=== PATIENT | male | born 1935 | race Caucasian/White ===

== ENCOUNTER 2022-07-09 13:04 | Inpatient (IN) | payer OTHER ==
[~2022-07-09] VITALS: Ht 177.8 cm; Wt 73.5 kg
[2022-07-09] MEDS ORDERED: ASPIR 8181 M1 PO (14:04)
[2022-07-09] MEDS ORDERED: OMEP20ER PO (14:05)
[2022-07-09] MEDS ORDERED: GALA8 PO (14:05)
[2022-07-09 15:11] LABS: BASOPHILS ABSOLUTE AUTO 0.04 K/mm3 (0.00-0.23); BASOPHILS PERCENT AUTO 0 % (0-2); EOSINOPHILS ABSOLUTE AUTO 0.08 K/mm3 (0.00-0.68); EOSINOPHILS PERCENT AUTO 1 % (0-6); Hematocrit 41.5 % (37.0-53.0); Hemoglobin 14.5 g/dL (13.5-17.5); IMMATURE GRAN ABSOLUTE AUTO 0.04 K/mm3 (0.00-0.10); IMMATURE GRAN PERCENT AUTO 0 % (0-1); LYMPHOCYTES ABSOLUTE AUTO 0.93 K/mm3 (0.84-5.20); LYMPHOCYTES PERCENT AUTO 8 % (21-46); MONOCYTES ABSOLUTE AUTO 0.54 K/mm3 (0.16-1.47); MONOCYTES PERCENT AUTO 5 % (4-13); Mean Corpuscular HGB 30.7 pg (26.0-34.0); Mean Corpuscular HGB Conc 34.9 g/dL (31.5-36.5); Mean Corpuscular Volume 88 fL (80-100); Mean Platelet Volume 10.6 fL (9.1-12.4); NEUTROPHILS ABSOLUTE AUTO 9.88 K/mm3 (1.96-9.15); NEUTROPHILS PERCENT AUTO 86 % (41-73); Platelet Count 163 K/mm3 (150-400); RDW Coefficient Variation 12.8 % (11.7-14.2); RDW Standard Deviation 41.3 fL (35.1-46.3); Red Blood Cell Count 4.72 M/mm3 (4.30-5.90); White Blood Cell Count 11.51 K/mm3 (4.00-11.30)
[2022-07-09 15:47] LABS: Albumin, Blood 3.4 g/dL (3.4-5.0); Albumin/Globulin Ratio 1.1 (0.8-1.8); Bilirubin, Total 0.6 mg/dL (0.1-1.0); Bun/Creatinine Ratio 19.9 (12.0-20.0); Calcium, Blood 8.6 mg/dL (8.5-10.1); Creatinine, Blood 0.86 mg/dL (0.60-1.20); Potassium, Blood 3.6 mmol/L (3.5-5.5); Total Protein, Blood 6.4 g/dL (6.4-8.2)
--- NOTE | 2022-07-10 04:06 | NUR ---
SHIFT SUMMARY A/O TO SELF ONLY. BEDREST THROUGHOUT SHIFT AWAITING POSSIBLE SURGERY FOR L HIP FX. NPO SINCE MIDNIGHT. PAIN MANAGED PER EMAR. SLEPT ON AND OFF THROUGHOUT THE NIGHT. VOIDED AND REPORTS NO NAUSEA OR VOMITING. PLEASANT AND COOPERATIVE W/ CARE. WILL CONTINUE TO MONITOR AND REPORT TO ONCOMING RN.
[2022-07-10 06:40] LABS: SARS-Cov-2 (COVID-19) PCR, MMC NEGATIVE (NEGATIVE)
[2022-07-10 10:36] LABS: Source, Urine Foley catheter
[2022-07-10 10:53] LABS: Bilirubin, Urine Neg (Neg); Blood, Urine Neg (Neg); Glucose Qualitative, Urine 2+ (Neg); Ketones, Urine Neg (Neg); Leukocyte Esterase, Urine Neg (Neg); Nitrite, Urine Neg (Neg); Protein, Urine 2+ (Neg); Specific Gravity, Urine 1.025 (1.003-1.022); Urobilinogen, Urine 1+ (Normal)
--- NOTE | 2022-07-10 11:11 | NUR ---
Pt. is awake in bed and welcomes my visit. Pts. son is present. Pt. is unsettled about his recent fall and inquires of this chaplains background. With a calming presence and theraputic listening am able to answer the pts. inquiries. Establish rapport. Pt. displays evidence of awareness and trust in God. Prayed with Pt. Pt. and Pts. son verbalize gratitude for the spiritual care visit.
[2022-07-10 11:33] LABS: Appearance, Urine Clear (Clear); Color, Urine Yellow (P-Yellow)
[2022-07-10 11:34] LABS: Bacteria Not Seen /hpf; Red Blood Cells, Urine Not Seen /hpf (0-2); Squamous Epithelial Cells Not Seen /hpf (Few); White Blood Cells, Urine Not Seen /hpf (0-5)
--- NOTE | 2022-07-10 12:34 | NUR ---
PT TO UNIT VIA BED. SON AT BEDSIDE. SON IS POWER OF INDUSTRI[employer] PROFESSOR. PT RATES NO PAIN UNLESS MOVING, NO NAUSEA REPORTED.
--- NOTE | 2022-07-10 12:34 | NUR ---
PATIENT LEFT FOR THE OR WITH THE OR NURSES IN HIS BED.
--- NOTE | 2022-07-10 14:09 | NUR ---
PATIENT CAME BACK FROM PRE-OP AREA TO HIS ROOM DUE TO AN EMERGENT SURGERY. PATIENT IS A&OX4. CONTINUING NPO FOR DIET SINCE HE STILL MIGHT GO TO SURGERY LATER TODAY. IV FLUIDS RUNNING. PAIN IS MANAGED WITH IV PAIN MEDICATIONS. CALL LIGHT WITHIN REACH.
--- NOTE | 2022-07-10 18:05 | NUR ---
patient left for the or.
--- NOTE | 2022-07-10 22:23 | NUR ---
PT TO THE FLOOR FROM RECOVERY @ 2129. AYLA, DA SILVA PATENT DRAINING TO GRAVITY, STAT LOCK IN PLACE. ON ROOM AIR SATS @ 99%.PT SLEEPING BUT AROUSES EASILY. AQUACEL TO L HIP C/D/I. SCD'S IN PLACE. BED ALARM ON FOR SAFETY. CALL LIGHT IN REACH WILL CONTINUE TO MONITOR.
--- NOTE | 2022-07-11 03:48 | NUR ---
SHIFT SUMMARY POD 0 L HIP GAMMA NAIL. PATIENT ARRIVED TO THE FLOOR FROM RECOVERY @ 2130, SLEEPY BUT AROUSES TO STIMULI. DA SILVA PATENT DRAINING DARK TEA COLORED URINE. IV FLUIDS INFUSING. VSS, SATS IN THE UPPER 90'S ON RA. PATIENT HAS BEEN RESTING COMFORTABLY THROUGHOUT THIS SHIFT. REPOSITIONED WITH ASSISTANCE. CALL LIGHT IN REACH, BED ALARM ON. WILL REPORT TO DAY RN.
[2022-07-11 04:41] LABS: BASOPHILS ABSOLUTE AUTO 0.01 K/mm3 (0.00-0.23); BASOPHILS PERCENT AUTO 0 % (0-2); EOSINOPHILS PERCENT AUTO 0 % (0-6); Hematocrit 33.7 % (37.0-53.0); Hemoglobin 11.9 g/dL (13.5-17.5); IMMATURE GRAN ABSOLUTE AUTO 0.05 K/mm3 (0.00-0.10); IMMATURE GRAN PERCENT AUTO 0 % (0-1); LYMPHOCYTES ABSOLUTE AUTO 0.68 K/mm3 (0.84-5.20); LYMPHOCYTES PERCENT AUTO 6 % (21-46); MONOCYTES ABSOLUTE AUTO 1.09 K/mm3 (0.16-1.47); MONOCYTES PERCENT AUTO 9 % (4-13); Mean Corpuscular HGB Conc 35.3 g/dL (31.5-36.5); Mean Corpuscular Volume 88 fL (80-100); NEUTROPHILS ABSOLUTE AUTO 10.38 K/mm3 (1.96-9.15); NEUTROPHILS PERCENT AUTO 85 % (41-73); Platelet Count 169 K/mm3 (150-400); RDW Coefficient Variation 12.8 % (11.7-14.2); RDW Standard Deviation 41.2 fL (35.1-46.3); Red Blood Cell Count 3.84 M/mm3 (4.30-5.90); White Blood Cell Count 12.21 K/mm3 (4.00-11.30)
[2022-07-11 05:17] LABS: Albumin, Blood 2.8 g/dL (3.4-5.0); Anion Gap 8 mmol/L (6-16); Blood Urea Nitrogen 21 mg/dL (8-24); Bun/Creatinine Ratio 33.3 (12.0-20.0); CO2, Blood 22 mmol/L (21-32); Calcium, Blood 7.9 mg/dL (8.5-10.1); Chloride, Blood 110 mmol/L (98-108); Creatinine, Blood 0.63 mg/dL (0.60-1.20); Glomerular Filtration Rate 93 (60-); Glucose, Blood 144 mg/dL (70-99); Phosphorus, Blood 3.1 mg/dL (2.5-4.9); Potassium, Blood 4.1 mmol/L (3.5-5.5); Sodium, Blood 140 mmol/L (136-145)
--- NOTE | 2022-07-11 06:08 | NUR ---
[employer] NOTIFIED THIS RN OF A 60 SEC RUN OF SVT. VITALS CHECKED AND STABLE CALL MADE TO HOSPITALIST JIG BORING MACHINE SET UP OPERATOR. PT IS ASYMTOMATIC WILL REPORT TO DAY RN.
--- NOTE | 2022-07-11 08:58 | NUR ---
SPOKE WITH DR LEMOS REGARDING PATIENT MAINTAINING HR 120-130 IN A FIB
--- NOTE | 2022-07-11 16:10 | NUR ---
Pt. is awake and sitting in a recliner. Pt. son is present. Both welcome my visit. Pt. is unsettled about the unknowns of his SNF placement. Sit down with Pt. and with theraputic listening Pt. displays evidence of less anxiety. Prayed with Pt. Pt. and Pts. son both verbalize gratitude for the spiritual care visit.
--- NOTE | 2022-07-11 17:23 | NUR ---
PT DENIES ANY PAIN, CHELITA PO FOOD AND FLUIDS WITHOUT NNAUSEA. PT COOPERATIVE WITH CARE, DOES NOT FOLLOW [facility] RESTRICTIONS WHEN ASSISTED OUT OF BED. MAX 3 PERSON ASSIST TO COMMODE AND TO RETURN TO BED. LEFT HIP DRESSING WITH DIME SIZED AREA OF BLOODY DRAINAGE. DA SILVA WITH YONAS URINE OUTPUT BUT HAS BECOME MIRROR FINISHING MACHINE OPERATOR IN COLOR THROUGHOUT SHIFT
--- NOTE | 2022-07-11 17:27 | NUR ---
HEART RATE CURRENTLY 80'S AND ATRIAL FIB PER TELE
[2022-07-12 04:18] LABS: BASOPHILS ABSOLUTE AUTO 0.03 K/mm3 (0.00-0.23); BASOPHILS PERCENT AUTO 0 % (0-2); EOSINOPHILS ABSOLUTE AUTO 0.06 K/mm3 (0.00-0.68); EOSINOPHILS PERCENT AUTO 1 % (0-6); Hematocrit 28.3 % (37.0-53.0); Hemoglobin 9.7 g/dL (13.5-17.5); IMMATURE GRAN ABSOLUTE AUTO 0.03 K/mm3 (0.00-0.10); IMMATURE GRAN PERCENT AUTO 0 % (0-1); LYMPHOCYTES ABSOLUTE AUTO 2.32 K/mm3 (0.84-5.20); LYMPHOCYTES PERCENT AUTO 29 % (21-46); MONOCYTES ABSOLUTE AUTO 1.12 K/mm3 (0.16-1.47); MONOCYTES PERCENT AUTO 14 % (4-13); Mean Corpuscular HGB 30.6 pg (26.0-34.0); Mean Corpuscular HGB Conc 34.3 g/dL (31.5-36.5); Mean Corpuscular Volume 89 fL (80-100); NEUTROPHILS ABSOLUTE AUTO 4.55 K/mm3 (1.96-9.15); NEUTROPHILS PERCENT AUTO 56 % (41-73); Platelet Count 142 K/mm3 (150-400); RDW Coefficient Variation 12.8 % (11.7-14.2); RDW Standard Deviation 41.9 fL (35.1-46.3); Red Blood Cell Count 3.17 M/mm3 (4.30-5.90); White Blood Cell Count 8.11 K/mm3 (4.00-11.30)
[2022-07-12 04:39] LABS: Albumin, Blood 2.6 g/dL (3.4-5.0); Anion Gap 5 mmol/L (6-16); Blood Urea Nitrogen 32 mg/dL (8-24); Bun/Creatinine Ratio 34.6 (12.0-20.0); CO2, Blood 25 mmol/L (21-32); Calcium, Blood 7.9 mg/dL (8.5-10.1); Chloride, Blood 108 mmol/L (98-108); Creatinine, Blood 0.93 mg/dL (0.60-1.20); Glomerular Filtration Rate 80 (60-); Glucose, Blood 89 mg/dL (70-99); Potassium, Blood 3.6 mmol/L (3.5-5.5); Sodium, Blood 138 mmol/L (136-145)
--- NOTE | 2022-07-12 06:35 | NUR ---
SHIFT SUMMARY POD2 L HIP GAMMA NAIL, ALERT BUT CONFUSED, ORIENTED TO SELF AND FAMILY ONLY, NOT IMPULSIVE AND HAS NOT TRIED GETTING UP ALONE, REPORTS MINIMAL PAIN AND HAS ONLY TAKEN SCHEDULED TYLENOL THIS SHIFT. NO ACUTE EVENTS THIS SHIFT, CALL LIGHT IN REACH, WILL CTM AND REPORT TO ONCOMING DAY RN.
[2022-07-12 15:45] LABS: Hematocrit 30.5 % (37.0-53.0); Hemoglobin 10.3 g/dL (13.5-17.5)
--- NOTE | 2022-07-12 16:17 | NUR ---
1450 ELLY WRAP APPLIED AROUND WAIST AND LEFT UPPER THIGH PER DR GARDNER INSTRUCTIONS
--- NOTE | 2022-07-12 17:49 | NUR ---
SITTING UP IN CHAIR MUCH OF SHIFT. PT REPORTS PAIN WITH MOVEMENT TO LEFT HIP BUT DENIES WHEN STILL, HAS DECLINED OFFERS OF PAIN MEDS OTHER THAN SCHEDULED TYLENOL. ELLY WRAP IN PLACE TO LEFT UPPER EXTREMITY. LEFT THIGH FIRMER TO TOUCH THAN RIGHT. MOVEMENT, SENSATION , MOVEMENT AND CAPILLARY REFILL IN PLACE TO BILAT LOWER EXTREMITIES. PT INCONTINENT OF URINE, ATTENDS IN PLACE. LEFT HIP DRESSING DRY AND INTACT
[2022-07-13 04:57] LABS: BASOPHILS ABSOLUTE AUTO 0.03 K/mm3 (0.00-0.23); BASOPHILS PERCENT AUTO 0 % (0-2); EOSINOPHILS ABSOLUTE AUTO 0.19 K/mm3 (0.00-0.68); EOSINOPHILS PERCENT AUTO 2 % (0-6); Hematocrit 25.9 % (37.0-53.0); Hemoglobin 9.1 g/dL (13.5-17.5); IMMATURE GRAN ABSOLUTE AUTO 0.03 K/mm3 (0.00-0.10); IMMATURE GRAN PERCENT AUTO 0 % (0-1); LYMPHOCYTES ABSOLUTE AUTO 2.08 K/mm3 (0.84-5.20); LYMPHOCYTES PERCENT AUTO 27 % (21-46); MONOCYTES PERCENT AUTO 12 % (4-13); Mean Corpuscular HGB 31.1 pg (26.0-34.0); Mean Corpuscular HGB Conc 35.1 g/dL (31.5-36.5); Mean Corpuscular Volume 88 fL (80-100); Mean Platelet Volume 11.1 fL (9.1-12.4); NEUTROPHILS PERCENT AUTO 59 % (41-73); Platelet Count 154 K/mm3 (150-400); RDW Coefficient Variation 12.4 % (11.7-14.2); RDW Standard Deviation 40.2 fL (35.1-46.3); Red Blood Cell Count 2.93 M/mm3 (4.30-5.90); White Blood Cell Count 7.83 K/mm3 (4.00-11.30)
[2022-07-13 05:25] LABS: Albumin, Blood 2.7 g/dL (3.4-5.0); Anion Gap 6 mmol/L (6-16); Blood Urea Nitrogen 25 mg/dL (8-24); Bun/Creatinine Ratio 31.4 (12.0-20.0); CO2, Blood 24 mmol/L (21-32); Chloride, Blood 109 mmol/L (98-108); Glomerular Filtration Rate 86 (60-); Glucose, Blood 91 mg/dL (70-99); Phosphorus, Blood 2.4 mg/dL (2.5-4.9); Potassium, Blood 3.4 mmol/L (3.5-5.5); Sodium, Blood 139 mmol/L (136-145)
[2022-07-13 11:38] LABS: Hematocrit 26.2 % (37.0-53.0); Hemoglobin 9.2 g/dL (13.5-17.5)
--- NOTE | 2022-07-13 17:15 | NUR ---
SHIFT SUMMARY PT A&OX4, VSS/RA, CHELITA PO, VOIDING URINAL, STAND PIVOT FWW/GB 2 PP MOD ASSIST, UP TO CHAIR FOR MEALS, PAIN MANAGED WITH TYLENOL. POD2 L HIP NAILING, AQUACEL DRY/INTACT. WILL REPORT TO ONCOMING NOC RN.
--- NOTE | 2022-07-14 04:21 | NUR ---
SHIFT SUMMARY POD4 L HIP GAMMA NAILING WITH AQUACEL DRESSING. AQUACEL DRESSING HAD MODERATE DRAINAGE AT THE BEGNNING OF SHIFT. SATURATED WITH LARGE CLOT THIS MORNING. DRESSING WAS CHANGED, JUANA APPEARS TO BE INTAKE. HX DEMENTIA, PT HAS CONFUSION BUT APPEARS TO BE BETTER COMPARED 2 NIGHTS AGO. PT USE CALL LIGHT APPROPRIATELY. HE ALSO USES HIS URINAL. VOIDING WITHOUT ISSUE. TOLERATING PO INTAKE. DENIES NAUSEA AND VOMITING. STRATEGY LEAD PVOT IN BED TO CHAIR. PT REPORTS A LOT OF DISCOMFORT AT THE BEGINNING OF SHIFT. MEDICATED WITH 1 TAB ULTRAM. PT APPEARS TO HAVE SOME RELIEF WITH THIS MEDICATION. SLEPT GOOD OVERNIGHT. BED ALARM ON FOR SAFETY. BED IN LOW POSITION. CALL LGIHT WITHIN REACH. WILL PROVIDE REPORT TO ONCOMING NURSE.
[2022-07-14 06:05] LABS: BASOPHILS ABSOLUTE AUTO 0.06 K/mm3 (0.00-0.23); BASOPHILS PERCENT AUTO 1 % (0-2); EOSINOPHILS ABSOLUTE AUTO 0.38 K/mm3 (0.00-0.68); EOSINOPHILS PERCENT AUTO 5 % (0-6); Hematocrit 26.6 % (37.0-53.0); Hemoglobin 9.2 g/dL (13.5-17.5); IMMATURE GRAN ABSOLUTE AUTO 0.05 K/mm3 (0.00-0.10); IMMATURE GRAN PERCENT AUTO 1 % (0-1); LYMPHOCYTES ABSOLUTE AUTO 2.14 K/mm3 (0.84-5.20); LYMPHOCYTES PERCENT AUTO 26 % (21-46); MONOCYTES ABSOLUTE AUTO 0.76 K/mm3 (0.16-1.47); MONOCYTES PERCENT AUTO 9 % (4-13); Mean Corpuscular HGB Conc 34.6 g/dL (31.5-36.5); Mean Corpuscular Volume 90 fL (80-100); Mean Platelet Volume 10.7 fL (9.1-12.4); NEUTROPHILS ABSOLUTE AUTO 4.71 K/mm3 (1.96-9.15); NEUTROPHILS PERCENT AUTO 58 % (41-73); Platelet Count 185 K/mm3 (150-400); RDW Coefficient Variation 12.7 % (11.7-14.2); RDW Standard Deviation 41.1 fL (35.1-46.3); Red Blood Cell Count 2.97 M/mm3 (4.30-5.90)
[2022-07-14 06:36] LABS: Magnesium, Blood 2.2 mg/dL (1.6-2.4)
[2022-07-14 06:44] LABS: Albumin, Blood 2.8 g/dL (3.4-5.0); Anion Gap 4 mmol/L (6-16); Blood Urea Nitrogen 20 mg/dL (8-24); Bun/Creatinine Ratio 28.9 (12.0-20.0); CO2, Blood 25 mmol/L (21-32); Calcium, Blood 8.2 mg/dL (8.5-10.1); Chloride, Blood 108 mmol/L (98-108); Creatinine, Blood 0.69 mg/dL (0.60-1.20); Glomerular Filtration Rate 90 (60-); Glucose, Blood 93 mg/dL (70-99); Phosphorus, Blood 2.5 mg/dL (2.5-4.9); Potassium, Blood 3.6 mmol/L (3.5-5.5); Sodium, Blood 137 mmol/L (136-145)
--- NOTE | 2022-07-14 17:04 | NUR ---
SHIFT SUMMARY PT A&OX2/PLEASANT/COOPERATIVE WITH CARE, VSS/RA. CHELITA PO. PAIN MANAGED WITH TYLENOL DURING DAY AND 1 ULTRAM NOC. VOIDING/URINAL. AMB STAND PIVOT TO CHAIR/BED. POD3 L HIP NAIL, AQUACEL CHANGED TODAY, CDI. WILL REPORT TO ONCOMING NOC RN.
--- NOTE | 2022-07-14 23:40 | NUR ---
PAIENT HAVING INCREASED CONFUSION. TRANSFERED PATIENT INTO ROOM 214 FOR SAEFTY, BED ALARM ON.
--- NOTE | 2022-07-15 03:51 | NUR ---
SHIFT SUMMARY POD #4 L HIP GAMMA NAIL.A&OX2 AT BEGINNING OF SHIFT PATIENT HAD INCREASED CONFUSION AND SOME AGITATION LATER IN THE NIGHT. ABLE TO REDIRECT AND COMFORT PATIENT. PATIENT MOVED TO ROOM 214 TO BE CLOSER TO NURSES STATION. TOLERATING PO INTAKE, VOIDING USING URINAL AND ONE INCONT. STOOL THIS SHIFT. MEDICATED FOR PAIN WITH ULTRAM. DR ORDERED ONE TIME DOSE OF MELATONIN TO HELP PATIENT SLEEP. PT RESTED FOR ABOUT 30 MINUTES AND CONTINUES TO PULL ON CORDS AND TELE MONTIOR.TELE ORDER DC'D NO ACUTE EVENTS SINCE PREVIOUS POST OP DAY. VSS, BED ALARM ON. CONTINUE TO MONITOR PATIENT, REPORT TO DAY RN.
[2022-07-15 08:16] LABS: BASOPHILS ABSOLUTE AUTO 0.04 K/mm3 (0.00-0.23); BASOPHILS PERCENT AUTO 1 % (0-2); EOSINOPHILS ABSOLUTE AUTO 0.31 K/mm3 (0.00-0.68); EOSINOPHILS PERCENT AUTO 4 % (0-6); Hematocrit 28.5 % (37.0-53.0); Hemoglobin 9.8 g/dL (13.5-17.5); IMMATURE GRAN ABSOLUTE AUTO 0.04 K/mm3 (0.00-0.10); IMMATURE GRAN PERCENT AUTO 1 % (0-1); LYMPHOCYTES ABSOLUTE AUTO 1.58 K/mm3 (0.84-5.20); LYMPHOCYTES PERCENT AUTO 21 % (21-46); MONOCYTES ABSOLUTE AUTO 0.76 K/mm3 (0.16-1.47); MONOCYTES PERCENT AUTO 10 % (4-13); Mean Corpuscular HGB 31.1 pg (26.0-34.0); Mean Corpuscular HGB Conc 34.4 g/dL (31.5-36.5); Mean Corpuscular Volume 91 fL (80-100); Mean Platelet Volume 10.6 fL (9.1-12.4); NEUTROPHILS ABSOLUTE AUTO 4.67 K/mm3 (1.96-9.15); NEUTROPHILS PERCENT AUTO 63 % (41-73); Platelet Count 222 K/mm3 (150-400); RDW Coefficient Variation 13.2 % (11.7-14.2); RDW Standard Deviation 42.5 fL (35.1-46.3); Red Blood Cell Count 3.15 M/mm3 (4.30-5.90)
[2022-07-15 08:22] LABS: Albumin, Blood 2.9 g/dL (3.4-5.0); Bilirubin, Total 1.3 mg/dL (0.1-1.0); Bun/Creatinine Ratio 24.5 (12.0-20.0); Calcium, Blood 8.6 mg/dL (8.5-10.1); Creatinine, Blood 0.69 mg/dL (0.60-1.20); Globulin, Blood 2.9 g/dL (2.2-4.0); Magnesium, Blood 2.2 mg/dL (1.6-2.4); Total Protein, Blood 5.8 g/dL (6.4-8.2)
[2022-07-15 16:08] LABS: SARS-Cov-2 (COVID-19) PCR, MMC NEGATIVE (NEGATIVE)
--- NOTE | 2022-07-15 17:18 | NUR ---
DISCHARGE SUMMARY POD4 L GAMMA NAIL, ALERT BUT ONLY ORIENTED TO SELF AND FAMILY, NOT IMPULSIVE AND FOLLOWS COMMANDS, OCCASIONAL NONSENSICAL RESPONSES TO QUESTIONS BUT PLEASANT WITH STAFF, PAIN MANAGED PRIMARILY WITH TYLENOL AND PRN ULTRAM FOR BREAKTHROUGH, BM TODAY, VOIDING WELL WITH INTERMITTENT INCONTINENCE. PT ABLE TO VERBALIZE NEEDS. PT PICKED UP BY EMS TO BE TAKEN TO [facility], REPORT CALLED THERE AND ALL QUESTIONS ANSWERED.
[2022-07-20] MEDS ORDERED: ELIQUIS5 M2 PO (16:24)
[2022-07-20] MEDS ORDERED: METO25ER PO (16:25)
[2022-07-20] MEDS ORDERED: TRAM50 PO (16:26)
[2022-07-20] MEDS ORDERED: DULCOLAX400 MG/5 M PO (16:26)
== END 2022-07-15 16:45 | DRG 482 ==
LOC: ER 13:04 → SURS 16:28
PROVIDERS: Family Medicine; Internal Medicine; Physician Assistant; ADMIT Family Medicine
PROC: 0QS736Z Reposition Left Upper Femur with Intramedullary Internal Fixation Device, Percutaneous Approach (ICD-10-PCS; principal; 2022-07-11)
DX: S72.142A Displaced intertrochanteric fracture of left femur, initial encounter for closed fracture (principal); Z20.822 Contact with and (suspected) exposure to COVID-19; G30.9 Alzheimer's disease, unspecified; F02.80 Dementia in other diseases classified elsewhere, unspecified severity, without behavioral disturbance, psychotic disturbance, mood disturbance, and anxiety; R03.0 Elevated blood-pressure reading, without diagnosis of hypertension; I48.91 Unspecified atrial fibrillation; Z79.82 Long term (current) use of aspirin; Z88.8 Allergy status to other drugs, medicaments and biological substances; Z79.899 Other long term (current) drug therapy; W01.0XXA Fall on same level from slipping, tripping and stumbling without subsequent striking against object, initial encounter; Y92.003 Bedroom of unspecified non-institutional (private) residence as the place of occurrence of the external cause
CPT/HCPCS: 36415; 71045; 73502; 73552; 80053; 80069; 81001; 83735; 85014; 85018; 85025; 88305; 88311; 93005; 93010; 96374; 97110; 97162; 97166; 97530; 97535; 99285-25; A9270; C1713; C1769; J0690; J1100; J1650; J2270; J2370; J2405; J2704; J3010; J7120; U0004

== ENCOUNTER 2022-10-15 11:02 | Emergency (ER) | payer MEDICARE, OTHER ==
[~2022-10-15] VITALS: Ht 180.3 cm; Wt 83.9 kg
[~2022-10-15 11:02] MED LIST: ASPIR 8181 M1 PO; DULCOLAX400 MG/5 M PO; ELIQUIS5 M2 PO; GALA8 PO; METO25ER PO; OMEP20ER PO; TRAM50 PO
[2022-10-15 14:04] LABS: Influenza B, PCR NEGATIVE (NEGATIVE); Resp Syncytial Virus, PCR NEGATIVE (NEGATIVE); SARS-Cov-2 (COVID-19) PCR, MMC NEGATIVE (NEGATIVE)
[2022-10-15 14:08] LABS: Influenza A, PCR POSITIVE (NEGATIVE)
== END 2022-10-15 16:23 | disposition home or self-care (01) ==
LOC: ER 11:02
PROVIDERS: Emergency Medicine
DX: J10.1 Influenza due to other identified influenza virus with other respiratory manifestations (principal); G30.9 Alzheimer's disease, unspecified; F02.80 Dementia in other diseases classified elsewhere, unspecified severity, without behavioral disturbance, psychotic disturbance, mood disturbance, and anxiety; I48.91 Unspecified atrial fibrillation; Z79.01 Long term (current) use of anticoagulants; Z20.822 Contact with and (suspected) exposure to COVID-19; Z79.899 Other long term (current) drug therapy; Z79.82 Long term (current) use of aspirin
CPT/HCPCS: 0241U; J7030

== ENCOUNTER 2023-01-04 21:28 | Emergency (ER) | payer MEDICARE, OTHER ==
[~2023-01-04] VITALS: Ht 182.9 cm; Wt 90.7 kg
[2023-01-04] MEDS ORDERED: MELATONIN TR 51 EAC2 PO (21:42)
[2023-01-04] MEDS ORDERED: Melatonin1 MG PO (21:43)
[2023-01-04] MEDS ORDERED: GALA8 PO (21:46)
[2023-01-04] MEDS ORDERED: ACET500 PO (21:49)
== END 2023-01-04 22:50 | disposition home or self-care (01) ==
LOC: ER 21:28
DX: S09.90XA Unspecified injury of head, initial encounter (principal); S40.812A Abrasion of left upper arm, initial encounter; S70.12XA Contusion of left thigh, initial encounter; W18.12XA Fall from or off toilet with subsequent striking against object, initial encounter
CPT/HCPCS: 99283

== ENCOUNTER 2023-02-20 00:41 | Emergency (ER) | payer MEDICARE, OTHER ==
[~2023-02-20] VITALS: Ht 177.8 cm; Wt 68.0 kg
[~2023-02-20 00:41] MED LIST changes: +ACET500 PO; +MELATONIN TR 51 EAC2 PO; +Melatonin1 MG PO
[2023-02-20] MEDS ORDERED: LORA.5 PO (01:03)
[2023-02-20] MEDS ORDERED: MORP10S PR (01:03)
[2023-02-20 05:22] VITALS: BP 121/70
== END 2023-02-20 05:24 | disposition home or self-care (01) ==
LOC: ER 00:41
DX: Z04.3 Encounter for examination and observation following other accident (principal); Z51.5 Encounter for palliative care; G30.9 Alzheimer's disease, unspecified; F02.80 Dementia in other diseases classified elsewhere, unspecified severity, without behavioral disturbance, psychotic disturbance, mood disturbance, and anxiety; I48.91 Unspecified atrial fibrillation; W19.XXXA Unspecified fall, initial encounter; Y92.129 Unspecified place in nursing home as the place of occurrence of the external cause; Z79.899 Other long term (current) drug therapy
CPT/HCPCS: 99284